=== PATIENT | female | born 1965 | race Caucasian/White ===

== ENCOUNTER 2016-10-25 00:35 | Inpatient (IN) | payer SELFPAY ==
[2016-10-25] VITALS (9 sets, daily range): BP systolic 114–200; BP diastolic 70–104
[~2016-10-25] VITALS: Ht 149.9 cm; Wt 79.0 kg
[~2016-10-25 00:35] MED LIST: VICODIN 500 MG-1 TAB PO; ZANTAC150 MG PO
[2016-10-25 00:54] LABS: BASO % 0.3 % (0.0-1.0); EOS % 0.2 % (1.0-4.0); HEMATOCRIT 43.2 % (37.0-47.0); HEMOGLOBIN 15.4 g/dl (12.0-16.0); LYMPH # 3.1 10*3/uL (1.3-4.4); LYMPH % 30.8 % (27.0-41.0); MEAN CELL VOLUME 85.4 fl (81.0-99.0); MEAN CORPUSCULAR HGB 30.4 pg (27.0-31.0); MEAN CORPUSCULAR HGB CONC 35.6 g/dl (33.0-37.0); MEAN PLATELET VOLUME 9.2 fl (9.6-12.3); MONO # 0.4 10*3/uL (0.1-1.0); MONO % 3.8 % (3.0-9.0); NEUT # 6.5 10*3/uL (2.3-7.9); NEUT % 64.6 % (47.0-73.0); PLATELET COUNT AUTOMATED 261 10*3/uL (130-400); RED BLOOD COUNT 5.06 10*6/uL (4.10-5.10); RED CELL DISTRI WIDTH 11.8 % (0-14.5)
[2016-10-25 01:04] LABS: INTERNATIONAL NORM RATIO 0.9 (2.0-3.5); PROTHROMBIN TIME 9.9 SECONDS (9.0-12.4)
[2016-10-25 01:09] LABS: ALKALINE PHOSPHATASE 70 U/L (45-117); BILIRUBIN, TOTAL 0.8 mg/dl (0.2-1.0); BUN 14 mg/dl (7-24); CARBON DIOXIDE 24 mmol/L (21-32); CHLORIDE 99 mmol/L (98-107); EST GLOM FILT AFRICAN AMERICAN > 60 ml/min; GLUCOSE 293 mg/dL (65-99); MAGNESIUM 1.9 mg/dL (1.5-2.1); POTASSIUM 3.6 mmol/L (3.5-5.1); SGOT/AST 20 IU/L (3-35); SGPT/ALT 27 U/L (12-78); SODIUM 138 mmol/L (136-145); TOTAL PROTEIN 7.8 gm/dL (6.4-8.2)
[2016-10-25 01:13] LABS: TROPONIN I 0.275 ng/ml (<0.045)
[2016-10-25 07:10] LABS: BASO % 0.1 % (0.0-1.0); EOS % 0.4 % (1.0-4.0); HEMATOCRIT 39.5 % (37.0-47.0); HEMOGLOBIN 13.7 g/dl (12.0-16.0); LYMPH # 4.5 10*3/uL (1.3-4.4); LYMPH % 44.3 % (27.0-41.0); MEAN CELL VOLUME 86.8 fl (81.0-99.0); MEAN CORPUSCULAR HGB 30.1 pg (27.0-31.0); MEAN CORPUSCULAR HGB CONC 34.7 g/dl (33.0-37.0); MEAN PLATELET VOLUME 9.2 fl (9.6-12.3); MONO # 0.6 10*3/uL (0.1-1.0); MONO % 5.6 % (3.0-9.0); NEUT % 49.4 % (47.0-73.0); PLATELET COUNT AUTOMATED 241 10*3/uL (130-400); RED BLOOD COUNT 4.55 10*6/uL (4.10-5.10); RED CELL DISTRI WIDTH 11.8 % (0-14.5)
[2016-10-25 07:22] LABS: HEMOGLOBIN A1c 9.9 % (4.8-5.6)
[2016-10-25 07:35] LABS: BUN 15 mg/dl (7-24); CARBON DIOXIDE 29 mmol/L (21-32); CHLORIDE 101 mmol/L (98-107); CHOLESTEROL 281 mg/dL (<200); EST GLOM FILT AFRICAN AMERICAN > 60 ml/min; GLUCOSE 216 mg/dL (65-99); HDL CHOLESTEROL 42 mg/dl (40-60); PHOSPHOROUS 3.8 mg/dL (2.5-4.9); POTASSIUM 3.4 mmol/L (3.5-5.1); SODIUM 140 mmol/L (136-145); TRIGLYCERIDES 538 mg/dl (<150)
[2016-10-25 07:43] LABS: FREE T4 0.98 ng/dl (0.76-1.46)
[2016-10-25 08:34] LABS: FOLIC ACID 18.64 ng/mL (>5.38)
== END 2016-10-25 08:20 | disposition short-term general hospital (02) | DRG 281 ==
LOC: ED 00:35 → ICCU 02:35
PROVIDERS: Emergency Medicine Emergency Medical Services; Internal Medicine Hospice and Palliative Medicine
DX: I21.4 Non-ST elevation (NSTEMI) myocardial infarction (principal); I16.1 Hypertensive emergency; E11.65 Type 2 diabetes mellitus with hyperglycemia; I10 Essential (primary) hypertension; E66.01 Morbid (severe) obesity due to excess calories; F10.20 Alcohol dependence, uncomplicated; E87.6 Hypokalemia; I99.8 Other disorder of circulatory system; Z68.39 Body mass index [BMI] 39.0-39.9, adult; Z98.51 Tubal ligation status; Z83.3 Family history of diabetes mellitus; Z82.49 Family history of ischemic heart disease and other diseases of the circulatory system

== ENCOUNTER 2024-04-24 15:59 | Emergency (ER) | payer SELFPAY ==
[~2024-04-24] VITALS: Ht 149.9 cm; Wt 72.6 kg
[2024-04-24] MEDS ORDERED: ENTRESTO 24 MG1 EACH PO (16:27)
[2024-04-24] MEDS ORDERED: CARVEDILOL25 MG PO (16:27)
[2024-04-24] MEDS ORDERED: OZEMPIC1 MG/0.71 SQ (16:28)
[2024-04-24] MEDS ORDERED: METFORMIN HYDR500 MG PO (16:28)
[2024-04-24] MEDS ORDERED: JARDIANCE25 MG PO (16:28)
[2024-04-24] MEDS ORDERED: ASPIRIN REGIMEN81 M2 PO (16:28)
[2024-04-24] MEDS ORDERED: AZITHROMYCIN 250 MG TAB PO ONE (16:35)
[2024-04-24] MEDS ORDERED: AVPAK AZITHROM250 M1 PO (16:38)
== END 2024-04-24 16:46 | disposition home or self-care (01) ==
LOC: ED 15:59
DX: J32.9 Chronic sinusitis, unspecified (principal); E11.9 Type 2 diabetes mellitus without complications; Z98.890 Other specified postprocedural states